=== PATIENT | female | born 1990 | race Caucasian/White ===

== ENCOUNTER 2020-03-25 17:53 | Emergency (ER) | payer OTHER ==
[~2020-03-25] VITALS: Ht 167.6 cm; Wt 154.7 kg
[2020-03-25 18:06] VITALS: TEMP 98.7
[2020-03-25] MEDS ORDERED: AMOXICILLIN 8751 TAB PO (20:15)
[2020-03-25 20:30] VITALS: BP 132/84; PULSE 79
== END 2020-03-25 20:30 | disposition home or self-care (01) ==
LOC: COL.ER 17:53
DX: S61.251A Open bite of left index finger without damage to nail, initial encounter (principal); W55.01XA Bitten by cat, initial encounter

== ENCOUNTER 2020-04-08 11:56 | Outpatient (RCR) | payer OTHER ==
[~2020-04-08 11:56] MED LIST: AMOXICILLIN 8751 TAB PO
[2020-04-08 12:27] VITALS: BP 140/79; PULSE 68; TEMP 97.7
== END 2020-06-13 | disposition still patient (30) ==
LOC: COL.ER
DX: Z20.3 Contact with and (suspected) exposure to rabies (principal)

== ENCOUNTER → 2021-09-08 | Outpatient (CLI) | payer OTHER | LOC: COL.RAD 09:22 | DX: Z31.41 Encounter for fertility testing (principal) | CPT/HCPCS: Q9967 ==